=== PATIENT | male | born 1990 | race Two or more races ===

== ENCOUNTER 2021-07-11 14:13 | Emergency (ER) | payer MEDICAID ==
[~2021-07-11] VITALS: Ht 180.3 cm; Wt 74.4 kg
[2021-07-11] MEDS ORDERED: MAG HYDROX/AL HYDROX/SIMETH 30 ML LIQUID UDC PO ONE (14:30)
[2021-07-11] MEDS ORDERED: PANTOPRAZOLE SODIUM 40 MG TABLET.DR PO ONE ×2 (14:30→14:56)
[2021-07-11] MEDS ORDERED: IV NORMAL SALINE 1000 ML BAG IV ONE (14:30)
--- NOTE | 2021-07-11 14:30 | NUR ---
patient brought in by rescue reporting that he is picked up at the [employer] in the street after walking out of a rehab facility next door. He stated he was having chest pain currently feeling constant pressure. He also states that he does not consume drugs only alcohol use x 5 yrs. unable to state how much he consumes in a day or a week however states that when he does drink he drinks heavily. This morning states he drank 5 beers.
--- NOTE | 2021-07-11 14:40 | NUR ---
patient seen and interviewed by Dr. Torres.
[2021-07-11 14:52] LABS: *AMPHETAMINE, URINE NEGATIVE (NEGATIVE); *CANNABINOID, URINE NEGATIVE (NEGATIVE); *COCCAINE, URINE NEGATIVE (NEGATIVE); *OPIATE, URINE NEGATIVE (NEGATIVE); *PHENCYCLIDINE SCREEN,URINE NEGATIVE (NEGATIVE)
[2021-07-11 14:55] LABS: CARBON DIOXIDE 27 mmol/L (21-32); CHLORIDE 103 mmol/L (98-107); CREATININE 0.7 mg/dL (0.6-1.3); GLUCOSE 119 mg/dL (74-106); POTASSIUM 3.7 mmol/L (3.5-5.1); UREA NITROGEN, BLOOD 8 mg/dL (7-18)
[2021-07-11] MEDS ORDERED: MAG HYDROX/AL HYDROX/SIMETH 30 ML LIQUID UDC ONE (14:56)
[2021-07-11 15:03] LABS: ALANINE AMINOTRANSFERASE 44 U/L (16-63); ALKALINE PHOSPHATASE 114 U/L (50-136); ASPARTATE AMINOTRANSFERASE 27 U/L (15-37); BILIRUBIN,DIRECT 0.1 mg/dL (0.0-0.2); BILIRUBIN,TOTAL 0.8 mg/dL (0.2-1.0); TOTAL PROTEIN, SERUM 8.2 g/dL (6.4-8.2)
[2021-07-11 15:11] LABS: PLATELET COUNT (AUTO) 314 K/uL (152-348)
[2021-07-11 15:16] LABS: ETHANOL 294 MG/DL (0-0)
[2021-07-11] MEDS ORDERED: OMEP40CA21 PO (18:09)
--- NOTE | 2021-07-11 18:30 | NUR ---
repeat ekg done before discharge per ER physician. report given to Dr. Harper
--- NOTE | 2021-07-11 18:48 | NUR ---
patient given all discharge instructions printed and informed in [facility] [place]. patient states he will take uber home and is able to ambulate well.
[2021-07-11 18:50] VITALS: BP 133/77
== END 2021-07-11 18:51 | disposition home or self-care (01) ==
LOC: ER 14:16
DX: K29.20 Alcoholic gastritis without bleeding (principal); F10.129 Alcohol abuse with intoxication, unspecified; Y90.8 Blood alcohol level of 240 mg/100 ml or more; R94.31 Abnormal electrocardiogram [ECG] [EKG]
CPT/HCPCS: 36415; 71045; 83690; 84484; 85025; 93005; A4663; G0480; J7030